=== PATIENT | female | born 1955 | race Caucasian/White ===

== ENCOUNTER 2017-02-17 08:23 | Outpatient (CLI) | payer OTHER ==
--- NOTE | 2017-02-17 22:33 | Ultrasound Report ---
EXAM: ABDOMEN ULTRASOUND EXAM DATE: 02/17/2017 08:30 a.m. CLINICAL HISTORY: Elevated LFTs, AT/AST, cholecystectomy. COMPARISON: None. TECHNIQUE: Real-time scanning was performed with static images obtained. FINDINGS: Liver: Diffusely hyperechoic liver parenchyma. No intrahepatic bile duct dilation. 1.8 x 1.8 x 1.2 cm rounded posterior left liver nonvascular hypoechoic lesion. 20.1 cm. Main portal vein flow: Hepatope radha. Gallbladder: Surgically absent. Biliary System: Common bile duct measures 7.5 mm. No intrahepatic or extrahepatic ductal dilatation. Pancreas: Not well seen due to overlying bowel gas and fatty liver parenchyma. Kidneys: Right: 10.7 cm longitudinally. Normal. No contour-deforming mass, stones, or hydronephrosis. Left: 10.1 cm longitudinally. Normal. No contour-deforming mass, stones, or hydronephrosis. Spleen: 13.6 x 3.7 x 3.5 cm. Normal in size and echotexture. Aorta and Inferior Vena Cava: Unremarkable. IMPRESSION: 1. Enlarged, markedly fatty liver. 1.8 cm avascular echogenic rounded lesion in the left liver. Findi ngs may represent a hemangioma. Confirmation with contrast-enhanced CT or MRI can be performed as nec essary. 2. Gallbladder is surgically absent. Normal common bile duct. 3. Pancreas poorly seen due to bowel gas. [facility] Referring Provider Line: [phone] SITE ID: [id number]
== END 2017-02-17 08:24 | disposition home or self-care (01) ==
LOC: DI 08:23
PROVIDERS: ATTEND Internal Medicine
DX: K76.0 Fatty (change of) liver, not elsewhere classified (principal); K76.9 Liver disease, unspecified; Z90.49 Acquired absence of other specified parts of digestive tract
CPT/HCPCS: 76700

== ENCOUNTER 2017-05-11 14:17 | Emergency (ER) | payer OTHER ==
[2017-05-11 15:09] LABS: BASOPHILS # (AUTO) 0.1 10^3/uL (0.0-0.1); BASOPHILS % (AUTO) 0.7 %; EOSINOPHILS # (AUTO) 0.3 10^3/uL (0.0-0.7); EOSINOPHILS % (AUTO) 2.5 %; HCT - HEMATOCRIT 38.5 % (37.0-47.0); HGB - HEMOGLOBIN 13.2 g/dL (12.0-16.0); LYMPHOCYTES # (AUTO) 3.3 10^3/uL (1.5-3.5); MEAN CORPUSCULAR HEMOGLOBIN 30.2 pg (27.0-31.0); MEAN CORPUSCULAR HGB CONC 34.3 g/dL (32.0-36.0); MEAN PLATELET VOLUME 7.6 fL (7.9-10.8); MONOCYTES # (AUTO) 0.5 10^3/uL (0.0-1.0); MONOCYTES % (AUTO) 4.9 %; NEUTROPHILS # (AUTO) 6.1 10^3/uL (1.5-6.6); NEUTROPHILS % (AUTO) 59.9 %; RED BLOOD COUNT 4.38 10^6/uL (4.20-5.40); RED CELL DISTRIBUTION WIDTH 13.1 % (12.0-15.0); UNCORRECTED WHITE BLOOD COUNT 10.2 x10^3/uL; WHITE BLOOD COUNT 10.2 x10^3/uL (4.8-10.8)
[2017-05-11 15:23] LABS: ALBUMIN/GLOBULIN RATIO 1.5 (1.0-2.2); BILIRUBIN,TOTAL 0.5 mg/dL (0.2-1.0); CALCIUM 9.2 mg/dL (8.5-10.3); CREATININE 0.6 mg/dL (0.4-1.0); POTASSIUM 3.9 mmol/L (3.5-5.0); TOTAL PROTEIN 7.2 g/dL (6.7-8.2)
--- NOTE | 2017-05-11 15:37 | XRAY Preliminary Report ---
Exam: XR CHEST 1 VIEW IMPRESSION: No acute cardiopulmonary disease seen. [facility] SITE ID: [id number]
--- NOTE | 2017-05-11 15:40 | XRAY Report ---
EXAM: CHEST RADIOGRAPHY EXAM DATE: 05/11/2017 03:09 PM. CLINICAL HISTORY: Chest pain. COMPARISON: Chest 03/26/2012. TECHNIQUE: 1 view. FINDINGS: Lungs/Pleura: No consolidation or focal airspace disease. No pleural effusion or pneumothorax. There is limited penetration which limits visualization. Mediastinum: Within exam limitations, the cardiomediastinal contour is normal. IMPRESSION: No acute cardiopulmonary disease seen. [facility] Referring Provider Line: [phone] SITE ID: [id number]
[2017-05-11] MEDS ORDERED: LIDOCAINE VISCOUS 2% 15 ML UDC MM STA (16:13)
[2017-05-11] MEDS ORDERED: MAG HYDROX/AL HYDROX/SIMETH 30 ML UDC PO STA (16:13)
[2017-05-11 16:20] VITALS: BP 168/88
[2017-05-11] MEDS ORDERED: SUCRALFATE 1 GM/10 ML UDC PO STA (16:27)
--- NOTE | 2017-05-11 16:29 | ED Physician Documentation ---
PD HPI CHEST PAIN - Stated complaint Stated Complaint: CHEST PX - Chief complaint Chief Complaint: Cardiac - History obtained from History obtained from: Patient, Family - History of Present Illness Timing - onset: Enter time (1229), Today Timing - onset during: Light activity Timing - duration: Hours Timing - details: Abrupt onset, Still present Pain level max: 8 Pain level now: 3 Quality: Sharp, Pain Location: Substernal Radiation: Back Improved by: Nothing Worsened by: No: Exertion, Inspiration Associated symptoms: No: Shortness of air, Diaphoresis, Nausea, Vomiting Similar symptoms before: Diagnosis (reflux) Recently seen: Not recently seen - Additional information Additional information: 61-year-old female with a history of reflux and status post removal of lap band has developed acute epigastric pain radiation to her back. She has become concerned about her heart with this as she has never had this radiation of pain to her back. She has had her gallbladder out she has had her appendix out she has had her lap band placed and removed and she has some hernia surgeries in her abdomen as well. She has not had coronary disease. She does have some diabetes. She did some drinking last night at a wine tasting event. She usually drinks 2-3 times per week lightly. She also takes omeprazole daily and does state that she did take her omeprazole yesterday. Review of Systems Constitutional: denies: Fever, Chills Eyes: denies: Decreased vision Ears: denies: Ear pain Nose: reports: Rhinorrhea / runny nose, Congestion (resovled) Throat: reports: Sore throat (resolved last week) Cardiac: reports: Chest pain / pressure. denies: Palpitations Respiratory: reports: Wheezing. denies: Dyspnea, Cough GI: reports: Abdominal Pain. denies: Nausea, Vomiting : denies: Dysuria, Frequency Skin: denies: Rash Musculoskeletal: reports: Back pain. denies: Neck pain, Extremity pain PD PAST MEDICAL HISTORY - Past Medical History Past Medical History: Yes Respiratory: Asthma Endocrine/Autoimmune: Other GI: Other : Other Psych: Depression - Past Surgical History Past Surgical History: Yes General: Cholecystectomy, Appendectomy, Other - Present Medications Home Medications: Ambulatory Orders Medication Instructions Recorded Confirmed Albuterol Sulfate [Proair Hfa 05/11/17 Inhaler] Aspirin [Aspirin EC] 05/11/17 Cyanocobalamin (Vitamin B-12) 05/11/17 [Vitamin B-12] Fluoxetine HCl 05/11/17 Metformin HCl [Metformin HCl ER] BID 05/11/17 Montelukast Sodium DAILY 05/11/17 [place]-3 Fatty Acids/Fish Oil [[facility] DAILY 05/11/17 Fish Oil 1,200 mg Softgel] Omeprazole DAILY 05/11/17 Sucralfate [Carafate] 1 gm PO ACHS #300 ml 05/11/17 - Allergies Allergies/Adverse Reactions: Allergies Allergy/AdvReac Type Severity Reaction Status Date / Time naproxen Allergy Hives Verified 05/11/17 14:23 [From Flanax (naproxen)] neomycin Allergy Rash Verified 05/11/17 14:24 - Social History Does the pt smoke?: No Smoking Status: Never smoker Does the pt drink ETOH?: Yes ETOH Use: Wine Does the pt have substance abuse?: No - Immunizations Immunizations are current?: No - POLST Patient has POLST: No PD ED PE NORMAL - Vitals Vital signs reviewed: Yes (hypertensive mild ) - General General: Alert and oriented X 3, No acute distress, Well developed/nourished - HEENT HEENT: Atraumatic, PERRL, EOMI, Ears normal, Moist mucous membranes, Pharynx benign, Dentition benign - Neck Neck: Supple, no meningeal sign, No bony TTP - Cardiac Cardiac: RRR, No murmur - Respiratory Respiratory: No respiratory distress, Clear bilaterally - Abdomen Abdomen: Soft, Other (mild epigastric tenderness to palpation ) - Back Back: No CVA TTP, No spinal TTP - Derm Derm: Normal color, Warm and dry, No rash - Extremities Extremities: No deformity, No edema - Neuro Neuro: No motor deficit, No sensory deficit Eye Opening: Spontaneous Motor: Obeys Commands Verbal: Oriented GCS Score: 15 - Psych Psych: Normal mood, Normal affect Results - Vitals Vitals: Vital Signs - 24 hr 05/11/17 05/11/17 05/11/17 14:24 15:45 16:19 Temperature 36.6 C 36.7 C Heart Rate 60 51 L 67 Respiratory 18 18 17 Rate Blood Pressure 153/83 H 152/93 H 168/88 H O2 Saturation 98 95 100 Oxygen O2 Source Room air - EKG (time done) 1430 Rate: Rate (enter#) (64) Intervals: Prolonged QT Ischemia: Other (flat T's) Compare to prior EKG: Old EKG unavailable Computer interpretation: Agree with computer - Labs Labs: Laboratory Tests 05/11/17 05/11/17 05/11/17 15:00 15:00 15:00 WBC 10.2 RBC 4.38 Hgb 13.2 Hct 38.5 MCV 88.0 MCH 30.2 MCHC 34.3 RDW 13.1 Plt Count 232 MPV 7.6 L Neut # 6.1 Lymph # 3.3 [place] # 0.5 Eos # 0.3 Baso # 0.1 Absolute Nucleated RBC 0.00 Nucleated RBC % 0.0 Sodium 139 Potassium 3.9 Chloride 103 Carbon Dioxide 24 Anion Gap 12.0 BUN 12 Creatinine 0.6 Estimated GFR (MDRD) 102 Glucose 91 Calcium 9.2 Total Bilirubin 0.5 AST 35 ALT 36 Alkaline Phosphatase 92 Troponin I < 0.04 Total Protein 7.2 Albumin 4.3 Globulin 2.9 Albumin/Globulin Ratio 1.5 Lipase 29 - Rads (name of study) 1 veiw chest Radiology: Prelim report reviewed (Impression: No acute cardiopulmonary disease seen.), EMP read indepedently, See rad report PD MEDICAL DECISION MAKING - ED course Complexity details: reviewed results, re-evaluated patient, considered differential, d/w patient, d/w family ED course: 61-year-old female with acute epigastric burning with radiation into her back is given a GI cocktail consisting of 10 ml of viscous lidocaine and 30 mL of Mylanta with some improvement in her pain. She subsequently administered Carafate. I suspect her pain is related to gastritis and the remainder of her workup is unremarkable. Departure - Departure Disposition: 01 Home, Self Care Clinical Impression: Gastritis Qualifiers: Gastritis type: unspecified gastritis Chronicity: acute Gastritis bleeding: without bleeding Qualified Code(s): K29.00 - Acute gastritis without bleeding Condition: Stable Instructions: ED PUD Vs Gastritis Follow-Up: KYLE MENDOZA MD [Primary Care Provider] - Prescriptions: Sucralfate [Carafate] 1 gm PO ACHS #300 ml
== END 2017-05-11 16:48 | disposition home or self-care (01) ==
LOC: ED 14:17
DX: K29.00 Acute gastritis without bleeding (principal); I45.81 Long QT syndrome; Z79.82 Long term (current) use of aspirin
CPT/HCPCS: 36415; 71010; 80053; 83690; 84484; 85025; 93005; 99283; 99284; A9270

== ENCOUNTER 2017-06-05 18:13 | Emergency (ER) | payer OTHER ==
[2017-06-05] MEDS ORDERED: SODIUM CHLORIDE 0.9% 1,000 ML IV ONE (19:09)
[2017-06-05 19:31] LABS: BASOPHILS % (AUTO) 0.3 %; EOSINOPHILS % (AUTO) 0.2 %; HGB - HEMOGLOBIN 14.5 g/dL (12.0-16.0); LYMPHOCYTES # (AUTO) 0.5 10^3/uL (1.5-3.5); LYMPHOCYTES % (AUTO) 4.5 %; MEAN CORPUSCULAR HEMOGLOBIN 29.5 pg (27.0-31.0); MEAN CORPUSCULAR HGB CONC 33.4 g/dL (32.0-36.0); MEAN CORPUSCULAR VOLUME 88.2 fL (81.0-99.0); MEAN PLATELET VOLUME 7.8 fL (7.9-10.8); MONOCYTES # (AUTO) 0.2 10^3/uL (0.0-1.0); NEUTROPHILS # (AUTO) 9.5 10^3/uL (1.5-6.6); PLT - PLATELET COUNT 253 10^3/uL (130-450); RED BLOOD COUNT 4.93 10^6/uL (4.20-5.40); RED CELL DISTRIBUTION WIDTH 12.9 % (12.0-15.0); WHITE BLOOD COUNT 10.2 x10^3/uL (4.8-10.8)
[2017-06-05 19:40] LABS: ALBUMIN 4.6 g/dL (3.2-5.5); ALBUMIN/GLOBULIN RATIO 1.5 (1.0-2.2); BILIRUBIN,TOTAL 0.6 mg/dL (0.2-1.0); CALCIUM 9.2 mg/dL (8.5-10.3); CREATININE 0.7 mg/dL (0.4-1.0); TOTAL PROTEIN 7.6 g/dL (6.7-8.2)
[2017-06-05] MEDS ORDERED: ONDANSETRON 4 MG/2 ML VIAL IVP STA (19:45)
[2017-06-05] MEDS ORDERED: MORPHINE 10 MG/ML VIAL IVP STA (19:45)
[2017-06-05] MEDS ORDERED: HYDROcod/ACETAM 5/325 MG TABLET PO STA (21:02)
[2017-06-05 21:04] VITALS: BP 103/64
--- NOTE | 2017-06-05 21:35 | ED Physician Documentation ---
PD HPI NVD - Stated complaint Stated Complaint: N/V/F/D/ABD PX - Chief complaint Chief Complaint: Abd Pain - History obtained from History obtained from: Patient, Family - History of Present Illness Timing - onset: Today Timing - duration: Days (1) Timing - details: Gradual onset Pain level max: 8 Pain level now: 7 Associated symptoms: Fever, Abdominal pain, Other (diarrhea, vomiting) Contributing factors: Sick contact. No: Travel, Recent antibiotics, Anticoagulated Improved by: Vomiting Worsened by: Eating Recently seen: Not recently seen - Additonal information Additional information: Patient with acute onset of abdominal pain, vomiting and diarrhea today. Also fevers at home. She has body aches. Unable to tolerate p.o. Has a history of multiple gastrointestinal surgeries including a LAP-BAND placement and removal of the lap band. Review of Systems Constitutional: reports: Fever Nose: denies: Rhinorrhea / runny nose, Congestion GI: reports: Abdominal Pain, Vomiting, Diarrhea Skin: denies: Rash Musculoskeletal: denies: Neck pain, Back pain Neurologic: denies: Headache PD PAST MEDICAL HISTORY - Past Medical History Respiratory: Asthma Endocrine/Autoimmune: Other GI: Other : Other Psych: Depression - Past Surgical History Past Surgical History: Yes General: Cholecystectomy, Appendectomy, Other - Present Medications Home Medications: Ambulatory Orders Medication Instructions Recorded Confirmed Albuterol Sulfate [Proair Hfa 05/11/17 Inhaler] Aspirin [Aspirin EC] 05/11/17 Cyanocobalamin (Vitamin B-12) 05/11/17 [Vitamin B-12] Fluoxetine HCl 05/11/17 Metformin HCl [Metformin HCl ER] BID 05/11/17 Montelukast Sodium DAILY 05/11/17 [place]-3 Fatty Acids/Fish Oil [[facility] DAILY 05/11/17 Fish Oil 1,200 mg Softgel] Omeprazole DAILY 05/11/17 Sucralfate [Carafate] 1 gm PO ACHS #300 ml 05/11/17 Hydrocodone/Acetaminophen 1 - 2 each PO Q6H PRN #14 tablet 06/05/17 [Hydrocodon-Acetaminophen 5-325] Ondansetron Odt [Zofran] 4 mg TL Q6H PRN #10 tablet 06/05/17 - Allergies Allergies/Adverse Reactions: Allergies Allergy/AdvReac Type Severity Reaction Status Date / Time naproxen Allergy Hives Verified 05/11/17 14:23 [From Flanax (naproxen)] neomycin Allergy Rash Verified 05/11/17 14:24 - Social History Does the pt smoke?: No Smoking Status: Never smoker Does the pt drink ETOH?: Yes Does the pt have substance abuse?: No - Immunizations Immunizations are current?: No - POLST Patient has POLST: No PD ED PE NORMAL - Vitals Vital signs reviewed: Yes - General General: Alert and oriented X 3, No acute distress, Well developed/nourished - HEENT HEENT: PERRL, Moist mucous membranes - Neck Neck: Supple, no meningeal sign - Cardiac Cardiac: RRR, Strong equal pulses - Respiratory Respiratory: No respiratory distress, Clear bilaterally - Abdomen Abdomen: Soft, Non tender, Non distended - Derm Derm: Warm and dry, No rash - Extremities Extremities: No edema - Neuro Neuro: Alert and oriented X 3 - Psych Psych: Normal mood, Normal affect Results - Vitals Vitals: Vital Signs - 24 hr 06/05/17 06/05/17 18:15 21:03 Temperature 37.3 C Heart Rate 100 76 Respiratory 18 16 Rate Blood Pressure 150/82 H 103/64 O2 Saturation 95 95 Oxygen O2 Source Room air - Labs Labs: Laboratory Tests 06/05/17 06/05/17 19:21 19:21 WBC 10.2 RBC 4.93 Hgb 14.5 Hct 43.5 MCV 88.2 MCH 29.5 MCHC 33.4 RDW 12.9 Plt Count 253 MPV 7.8 L Neut # 9.5 H Lymph # 0.5 L [place] # 0.2 Eos # 0.0 Baso # 0.0 Absolute Nucleated RBC 0.00 Nucleated RBC % 0.0 Sodium 137 Potassium 3.5 Chloride 102 Carbon Dioxide 18 L Anion Gap 17.0 H BUN 10 Creatinine 0.7 Estimated GFR (MDRD) 86 L Glucose 150 H Calcium 9.2 Total Bilirubin 0.6 AST 44 H ALT 36 Alkaline Phosphatase 99 Total Protein 7.6 Albumin 4.6 Globulin 3.0 Albumin/Globulin Ratio 1.5 Lipase 23 PD MEDICAL DECISION MAKING - ED course Complexity details: reviewed results, re-evaluated patient, considered differential, d/w patient, d/w family ED course: Patient is a 61-year-old female who presents to the emergency department with what appears to be viral gastroenteritis. No evidence of bowel obstruction. Abdomen is soft, nontender nondistended on serial exam. Feels better after IV fluids. Tolerating p.o. without difficulty. We will continue supportive care. Patient and family counseled regarding signs and symptoms for which I believe and urgent re-evaluation would be necessary. Patient with good understanding of and agreement to plan and is comfortable going home at this time This document was made in part using voice recognition software. While efforts are made to proofread this document, sound alike and grammatical errors may occur. Departure - Departure Disposition: 01 Home, Self Care Clinical Impression: Gastroenteritis Condition: Good Instructions: ED Gastroenteritis Viral Follow-Up: KYLE MENDOZA MD [Primary Care Provider] - Within 3 Days Prescriptions: Hydrocodone/Acetaminophen [Hydrocodon-Acetaminophen 5-325] 1 - 2 each PO Q6H PRN #14 tablet PRN Reason: pain Ondansetron Odt [Zofran] 4 mg TL Q6H PRN #10 tablet PRN Reason: Nausea / Vomiting Comments: Drink plenty of fluids and rest. This should improve over the next 24 hours. Discharge Date/Time: 06/05/17 21:50
== END 2017-06-05 21:50 | disposition home or self-care (01) ==
LOC: ED 18:13
DX: K52.9 Noninfective gastroenteritis and colitis, unspecified (principal); Z98.890 Other specified postprocedural states
CPT/HCPCS: 36415; 80053; 83690; 85025; 96361; 96374; 96375; 99283; 99284; A9270

== ENCOUNTER 2017-10-29 10:02 | Outpatient (CLI) | payer OTHER ==
[2017-10-29] MEDS ORDERED: BARIUM SULFATE 135 ML BOTTLE PO ONE (11:12)
[2017-10-29] MEDS ORDERED: SIMETHICONE/SOD BICARB/CIT AC 1 EACH PACKET PO ONE (11:12)
[2017-10-29] MEDS ORDERED: BARIUM SULFATE 176 GM BOTTLE PO ONE (11:12)
--- NOTE | 2017-10-29 20:05 | XRAY Report ---
ESOPHAGRAM: 10/29/2017 HISTORY: Gastroesophageal reflux, possible Christopher's esophagus. FINDINGS: Three minutes 37 seconds of fluoroscopy time, 12 fluoroscopic images are obtained. The patient is given thin and thick barium and air powder to swallow by mouth. The esophageal motility is normal. There is no evidence of aspiration, stricture, hiatal hernia, or reflux during this examination. The mucosa is unremarkable. Esophagus is of normal distensibility. A 13 mm barium tablet passes easily through the esophagus into the stomach. IMPRESSION: NORMAL ESOPHAGRAM. TD: 10/29/2017 16:44
== END 2017-10-29 10:03 | disposition home or self-care (01) ==
LOC: DI 10:02
PROVIDERS: ATTEND Nurse Practitioner Acute Care
DX: K21.9 Gastro-esophageal reflux disease without esophagitis (principal); R13.14 Dysphagia, pharyngoesophageal phase
CPT/HCPCS: 74220; A9270

== ENCOUNTER 2018-09-25 09:40 | Outpatient (CLI) | payer OTHER ==
--- NOTE | 2018-09-25 13:22 | XRAY Report ---
Reason: HEADACHE Procedure Date: 09/25/2018 Accession Number: [id number] / [id number] Procedure: XR - Cervical Spine 2 View CPT Code: FULL RESULT: EXAM: CERVICAL SPINE RADIOGRAPHY EXAM DATE: 09/25/2018 10:03 AM. CLINICAL HISTORY: Headache. COMPARISONS: None. TECHNIQUE: 3 views. FINDINGS: Alignment: Normal. No spondylolisthesis or scoliosis. Bones: The cervical vertebral bodies and posterior elements are well visualized from the skull base through C7-T1. No fractures or bone lesions. Disks: Mild disk space narrowing predominantly at C5-C6 and C6-C7. Facets: Mild facet arthropathy in the lower cervical spine accompanied by mild lateral mass hypertrophy. Soft Tissues: Normal. No prevertebral soft tissue swelling. The visualized lung apices are clear. IMPRESSION: Mild degenerative changes. [facility] ADDENDUM: 09/30/18 13:59 Visualization of the lateral masses on the odontoid is somewhat limited. Given that clinical concern is specifically for this area, additional clarification of the atlantooccipital relationship with cross-sectional imaging, i.e. CT should be considered.
== END 2018-09-25 09:41 | disposition home or self-care (01) ==
LOC: DI 09:40
PROVIDERS: ATTEND Internal Medicine
DX: M50.322 Other cervical disc degeneration at C5-C6 level (principal); M47.9 Spondylosis, unspecified
CPT/HCPCS: 72040

== ENCOUNTER 2020-06-25 12:22 | Outpatient (CLI) | payer OTHER ==
--- NOTE | 2020-06-25 13:28 | SLEEP CARE CONSULTATION ---
Information from patient questionnaire entered by Diane Irwin. I have reviewed and concur with the information entered by Diane Irwin. This document represents the service I personally performed and the decisions made by me, Federica Hernandez ARNP. History of Present Illness Service Date and Time: 06/25/2020 1222 Reason for Visit: New patient Chief Complaint: reports: Unrefreshed sleep, Snoring, Excessive daytime sleepiness, Fatigue, Frequent awakenings at night, Other (dry tongue and mouth in AM). denies: Observed pauses in breathing Date of Onset: October 2019 Usual bedtime: 9:30 pm Time it takes to fall asleep: 2 hours Snores at night: Yes Observed to quit breathing while asleep: No Sleeps alone due to snoring: No Number of times waking at night: 3 Reasons for waking at night: reports: Bathroom, Other (dry throat, need water). denies: Choking, Snoring (dry throat, need water; cough upon awakening), Gasping for air Toss, Turn, or Twitch while sleeping: No Recalls having dreams: Yes Usually gets out of bed at: 6:30 am Feels refreshed in the morning: No Morning headache: No ("morning fog") Sleepy or fatigued during the day: Yes Ever fallen asleep while driving: No Takes day naps: Yes (1-2 days a week, only for a few minutes) Dreams during day naps: No Prior sleep studies: No Additional HPI information: I had the pleasure of seeing SANTIAGO VALLECILLO today regarding the possibility of her having a sleep disorder. Her current complaints are snoring, dry cough and tongue in AM and fatigue. She is waking up either in the night or in morning with her tongue so dry. She may sleep with mouth open. She is sleeping upright because of congestion in her nose and sinuses. Her throat can feel sore and voice raspy. She does not feel she gets a good night sleep. - Parasomnia Symptoms Ever been unable to move upon waking from sleep: No Walks in sleep: No Talks in sleep: No Ever acted out dreams in sleep: No Ever felt weak in the knees when startled or emotional: No Bothered by creepy, crawly, restless sensations in legs: No Problems with memory or concentration: Yes (more memory issues) Subjective Initial Apollo Sleepiness Scale score: 9 (in 2020) Past Medical History Past Medical History: reports: Diabetes, Asthma, Depression, GERD. denies: Hypertension, Arrythmia, Anxiety, Mood disorder Social History The patient's occupation is a RETIRED. Patient is and lives in [place]. Have you smoked in the past 12 months: No Alcohol use: Yes Alcohol amount and frequency: 2 drinks per week Caffeine use: Yes Caffeine amount and frequency: 1 cup a day Family History Family history of sleep disordered breathing: Yes (brother) Family Hx Sleep Apnea: Father: Snoring, Sibling: Sleep apnea - Treated Allergies and Home Medications Drug allergies reviewed: Yes (naproxen, neomycin, aleve) Home medication list reviewed: Yes Allergy and home medication list: Modexus - longevity supplement Review of Systems Cardiovascular: denies: high blood pressure Respiratory: reports: wheeze Gastrointestinal: reports: heartburn, nausea, vomitting, diarrhea Urinary: reports: urgency Neurological: reports: gait or balance problems Psychiatric: reports: depression, claustrophobia Ear/Nose/Throat: reports: nasal congestion, sinus problems, dry mouth/throat, hoarseness, wisdom teeth removed. denies: tonsillectomy Endocrine: reports: sluggishness Musculoskeletal: reports: joint pain Immunologic: reports: sneezing, allergies to food or environment (seasonal allergies) Physical Exam Blood Pressure: 142/78 Cuff size: wrist Heart Rate: 59 O2 Saturation: 98 Height: 5 ft 3 in Weight: 221 lb Body Mass Index: 39.1 BMI Classification: Obese Neck circumference: 16 (inches) Nostrils: patent to airflow Turbinates: swollen Uvula visualization: 100% Mallampati Class I Tongue: enlarged in size with teeth curry on lateral edges Tonsils: 2+ Neck: normal w/o lymphadenopathy or thyromegaly Heart: regular rate and rhythm Lungs: clear bilaterally Impression and Plan 1. Suspected Obstructive Sleep Apnea-Hypopnea Syndrome, as suggested by a history of loud and irregular snoring, frequent awakening during the night, unrefreshed sleep, cognitive impairment, and excessive daytime sleepiness. Narrow oropharynx and obesity are common predisposing factors for obstructive sleep apnea-hypopnea syndrome. I recommend proceeding to polysomnography to confirm the diagnosis and to assess severity. If the patient has significant sleep disordered breathing, a manual CPAP titration study will also be performed to find the optimal treatment pressure. I informed the patient of what the sleep studies involve and after some discussion, obtained agreement to proceed. The p athophysiology of obstructive sleep apnea-hypopnea syndrome was discussed with the patient and health risks of cardiovascular and cerebrovascular disease if not treated. AASM brochure for obstructive sleep apnea-hypopnea syndrome given and reviewed. Risks of drowsy driving discussed in detail and patient advised to avoid long distance driving and to last puller at the first sign of drowsiness. Patient agreed to plan. * Schedule polysomnography +- manual CPAP titration study and return in 1-2 weeks after the study to discuss result and initiate therapy. * Avoid long distance driving or driving when feeling sleepy. * Avoid alcohol, sedative and muscle relaxant around bedtime. * Attempt to lose weight. * Review instructions provided by trained office staff on how to prepare for the sleep study. * Return for follow-up after sleep study completed. Counseling Topics: Weight loss health impact Visit Type: In Office Time Spent with Patient (minutes): 31 Provider Statement: I spent 100% of the Face to Face Visit with the patient with greater than 50% spent counseling the patient and coordination of care.
[2020-06-25 13:29] VITALS: BP 142/78
== END 2020-06-25 12:23 | disposition home or self-care (01) ==
LOC: SC 12:22
PROVIDERS: ATTEND Nurse Practitioner Family
DX: G47.10 Hypersomnia, unspecified (principal); G47.8 Other sleep disorders; R53.83 Other fatigue; E66.9 Obesity, unspecified; Z68.39 Body mass index [BMI] 39.0-39.9, adult; R41.89 Other symptoms and signs involving cognitive functions and awareness; R06.83 Snoring
CPT/HCPCS: 99203; 99212

== ENCOUNTER 2020-07-13 10:10 | Outpatient (CLI) | payer OTHER | END 2020-07-13 10:11 | disposition home or self-care (01) | LOC: SC 10:10 | PROVIDERS: ATTEND Nurse Practitioner Family | DX: G47.33 Obstructive sleep apnea (adult) (pediatric) (principal); R09.02 Hypoxemia; E66.9 Obesity, unspecified; Z68.39 Body mass index [BMI] 39.0-39.9, adult | CPT/HCPCS: 95806 ==

== ENCOUNTER 2020-07-16 09:38 | Outpatient (CLI) | payer OTHER ==
--- NOTE | 2020-07-16 13:19 | Ultrasound Report ---
LIMITED ULTRASOUND OF LEFT BREAST AND AXILLA: 07/16/2020 CLINICAL: Palpable left breast lump. Comparison is made to exams dated: 07/16/2020 mammogram, 05/03/2017 mammogram, 09/12/2013 mammogram, mammogram, and 01/07/2010 mammogram - [facility]. Ultrasound of the left breast 9 o'clock, and axilla regions was performed. There is a benign 0.4 cm x 0.6 cm x 2.2 cm oval cyst in the left breast at 6 o'clock posterior depth 6 cm from the nipple. This oval cyst is anechoic with posterior acoustic enhancement. IMPRESSION: BENIGN There is no sonographic evidence of malignancy. The 0.4 cm x 0.6 cm x 2.2 cm oval cyst in the left breast is consistent with a simple cyst and is chucho ign. Return to annual mammogram screening schedule is recommended. This exam was interpreted at Station ID: [id number]. Electronically Signed By: Srini Courtney acr/:07/16/2020 11:03:22 Ultrasound BI-RADS: 2 Benign BI-RADS CATEGORY: (2) - 2 RECOMMENDATION: (ANNUAL) - Recommend routine annual screening mammography. [id number] return to screening LATERALITY: (B)
--- NOTE | 2020-07-16 13:19 | Mammography Report ---
BILATERAL DIGITAL DIAGNOSTIC MAMMOGRAM 3D/2D: 07/16/2020 CLINICAL: Palpable left breast lump. Comparison is made to exams dated: 05/03/2017 mammogram, 09/12/2013 mammogram, 03/22/2012 mammogram, a nd 01/07/2010 mammogram - [facility]. The tissue of both breasts is predominantly f atty. There is a 0.9 cm x 0.3 cm x 0.3 cm oval asymmetry with a circumscribed margin in the left breast ant erior depth medial region seen on the craniocaudal view only 6 cm from the nipple. No other significant masses, calcifications, or other findings are seen in either breast. IMPRESSION: INCOMPLETE: NEEDS ADDITIONAL IMAGING EVALUATION The 0.9 cm x 0.3 cm x 0.3 cm oval asymmetry in the left breast is indeterminate. An ultrasound is re commended. US will be performed and dictated separately. This exam was interpreted at Station ID: [id number]. NOTE: For mammograms, a report in lay terms will be sent to the patient. Approximately 15% of breast malignancies will not be visualized mammographically. In the management of a palpable breast mass, a negative mammogram must not discourage biopsy of a clinically suspicious lesion. Electronically Signed By: Srini Courtney acr/:07/16/2020 11:01:54 ACR BI-RADS Category 0: Incomplete 3340F PARENCHYMAL PATTERN: (F) - The breast(s) demonstrate(s) diffuse fatty replacement. BI-RADS CATEGORY: (0) - 0 Ultrasound [id number] Immediate follow-up LATERALITY: (L)
== END 2020-07-16 09:39 | disposition home or self-care (01) ==
LOC: DI 09:38
PROVIDERS: ATTEND Physician Assistant
DX: N60.02 Solitary cyst of left breast (principal)

== ENCOUNTER 2020-07-23 12:32 | Outpatient (CLI) | payer OTHER ==
--- NOTE | 2020-07-23 13:19 | SLEEP CARE CONSULTATION ---
Information from patient questionnaire entered by Diane Irwin. I have reviewed and concur with the information entered by Diane Irwin. This document represents the service I personally performed and the decisions made by , Federica Hernandez ARNP. History of Present Illness Service Date and Time: 07/23/2020 1232 Initial [place] Sleepiness Scale score: 9 (in 2020) Current [place] Sleepiness Scale score: 9 Additional HPI information: SANTIAGO VALLECILLO returns with spouse listening from the phone for follow up and results of the recently performed home sleep study. I explained the pathophysiology behind obstructive sleep apnea. We then spent quite a bit of time discussing different treatment options. For mild obstructive sleep apnea, surgery and oral appliance are alternatives to nasal CPAP therapy but in moderate or severe cases, nasal CPAP is the most effective and reliable treatment. Because apnea is primarily in supine position, then positional management therapy could be effective. Methods discussed such as pos itioning with pillows, using a T-shirt with tennis balls in the back, and shown commercial products that have a pillow format on back to prevent supine sleep. I reviewed the impact of weight changes on sleep apnea and strongly recommended losing weight. After some discussion, the patient opted to go with the nasal CPAP therapy. Nasal autoCPAP set at [id number] will be ordered with rationale explained. A manual titration study will be ordered if unable to find optimal pressure with office adjustments. I explained how CPAP machine works with sample devices Respironics Dreamstation and ResSojeans [id number] and what to expect when using the machine. Using CPAP every night in order to get used to it was emphasized. Patient advised to put CPAP mask on before getting into bed so as not to fall asleep without CPAP. To assist acclimation to CPAP use, it could also be used for a short time during day while reading or watching TV. The patient was instructed to call the CPAP supplier to discuss any mechanical problem that may occur. If the mask given is uncomfortable or is difficult to keep on through the night even with adjustment, contact the CPAP supplier as many will replace with another mask style if notified before 30 days. If snoring or perceives is not getting enough air or too much air from the machine, notify this office. AAS patient education PAP tips reviewed and given to patient. Patient counseled not drink alcohol less than 4 hours before bedtime as it can increase snoring and apnea. Patient was cautioned about risks of drowsy driving until sleepiness symptoms resolve. Sleep Study - Results Type of Sleep Study: Home sleep study Prior sleep studies: No Polysomnography/Home Sleep Study results: Physician Impression: The quality of the study is good. The length of the study is adequate (> 240 minutes). Please also see the tabulated and graphic data. 1. Obstructive Sleep Apnea-Hypopnea (ICD-10 G47.33), moderate, with an AHI of 29.1/hr and lillian SaO2 of 75%. During the study, the patient had 112 apneas (112 obstructive, 0 central, 0 mixed) and 102 hypopneas. The longest episode lasted 59.5 seconds. The respiratory events occurred more frequently during supine sleep (supine AHI was 31.0 and non-supine, 8.29). 2. Hypoxemia (ICD-10 R09.02), moderate, with the lowest oxygen saturation of 75 % and 23.7 minutes with SaO2 under 90%. Baseline oxygen saturation was normal (Average oxygen saturation was 93%). Allergies and Home Medications Drug allergies reviewed: Yes (naproxen, neomycin) Home medication list reviewed: Yes (no changes) Review of Systems Review of systems same as previous: No (had mammogram that was clear; no other changes) Physical Exam Heart Rate: 70 O2 Saturation: 98 Height: 5 ft 3 in Weight: 224 lb Body Mass Index: 39.6 BMI Classification: Obese Impression and Plan 1. Obstructive Sleep Apnea-Hypopnea Syndrome, moderate, with lowest oxygen saturation of 75%. Obviously this is the cause of the patients symptoms of unrefreshed sleep, and excessive daytime sleepiness. Positive pressure therapy could benefit diabetes, depression, gastric reflux and asthma. As mentioned above, the patient will be started on nasal autoCPAP therapy with pressure set at 4-15 cmH2O. A manual titration study will be completed if unable to find optimal treatment pressure with office adjustments. Compliance guidelines also reviewed. A copy of compliance guidelines will be given for reference at check out. Because the apnea is more severe supine, I instructed to avoid sleeping supine using pillow positioning until able to start CPAP use. 2. Hypoxemia, moderate. Patient had a lillian oxygen saturation of 75 % and spent 23.7 minutes with SaO2 under 90%. Her baseline oxygen saturation was normal with an average oxygen saturation at 93%. * Nasal auto CPAP therapy, pressure at 4-15 cm H2O. * Continue to try to lose weight. * Avoid alcohol consumption near bedtime. * Avoid supine sleep until using CPAP. * The patient is again cautioned about driving until sleepiness completely resolves. * Return one month after CPAP obtained. I will assess response to therapy and compliance at that time. Counseling Topics: Weight loss health impact Visit Type: In Office Time Spent with Patient (minutes): 23 Provider Statement: I spent 100% of the Face to Face Visit with the patient with greater than 50% spent counseling the patient and coordination of care.
== END 2020-07-23 12:33 | disposition home or self-care (01) ==
LOC: SC 12:32
PROVIDERS: ATTEND Nurse Practitioner Family
DX: G47.33 Obstructive sleep apnea (adult) (pediatric) (principal); R09.02 Hypoxemia; E66.9 Obesity, unspecified; Z68.39 Body mass index [BMI] 39.0-39.9, adult
CPT/HCPCS: 99212; 99213

== ENCOUNTER 2020-12-21 14:45 | Outpatient (CLI) | payer OTHER ==
--- NOTE | 2020-12-21 15:42 | SLEEP CARE CONSULTATION ---
Information from patient questionnaire entered by Diane Irwin. I have reviewed and concur with the information entered by Diane Irwin. This document represents the service I personally performed and the decisions made by , Federica Hernandez ARNP. History of Present Illness Service Date and Time: 12/21/2020 1445 Previous diagnosis: Moderate, Obstructive Sleep Apnea-Hypopnea Syndrome AHI: 29.1 (in 2020) Reason for follow up: first compliance Equipment type: CPAP Equipment obtained from: [employer] (got initial supplies) Mask style: Nasal (over) Backup mask available: No (will keep old mask when replaced) Last cushion change: 1 month Prior sleep studies: Yes Year and Where: 2020 - [facility] Type of Sleep Study: Home sleep study HPI additional information: SANTIAGO VALLECILLO was diagnosed to have moderate, AHI 29.1, obstructive sleep apnea-hypopnea syndrome and returned today for CPAP therapy first compliance follow-up. CPAP Compliance Data - Data Reviewed with Patient Average duration of nightly device use: 5 hr 23 min Compliance rate %: 79 (90 days)(met 73% - 07/27/20-08/25/20) Current pressure setting (cmH2O): 4-15 (median 10.2, 95th 12.2, max 13.2) Humidity settin Average residual AHI: 1.5 Central apnea: 0.0 Obstructive apnea: 0.8 Subjective Missed days of use due to: reports: mask issues Patient concerns: reports: aerophagia (3 times a week), mask discomfort, air blowing in eyes, condensation in mask/hose (happening more at beginning, less often now). denies: mask leak noise, nasal congestion, dry mouth, nose, throat, epistaxis, other Observed to snore while using device: No Current pressure setting perceived as: comfortable On therapy, patient: reports: sleeping better, awakening more refreshed, being more awake and alert during the day, more rested overall. denies: drowsiness while driving Initial [place] Sleepiness Scale score: 9 (in 2020) Current [place] Sleepiness Scale score: 6 Allergies and Home Medications Home medication list reviewed: Yes (Fluoxetine restarted 20 mg daily) Review of Systems Review of systems same as previous: Yes (no changes) Physical Exam Heart Rate: 58 O2 Saturation: 98 Height: 5 ft 3 in Weight: 223 lb Body Mass Index: 39.4 BMI Classification: Obese Impression and Plan 1. Obstructive Sleep Apnea-Hypopnea Syndrome, moderate, with good treatment comp liance and good apnea control. On CPAP therapy, the patient has better sleep quality and is more rested overall. She has been getting some bloating 3-4 days a week with burping in the morning. To reduce symptoms of aerophagia, the CPAP pressure will be reduced to 10-12 cmH2O. Patient advised to contact me if this does not reduce symptoms or if pressure change uncomfortable. Patient is still getting used to the mask and tells me the over the nose mask is the most comfortable. She has some claustrophobia and sometimes gets triggered at the beginning of the night but feels this will improve over time as she gets used to it. Patient's apnea severity and rationale for treatment to reduce apnea, improve sleep quality and reduce cardiovascular and cerebrovascular events was reviewed. I also reviewed the benefit of consistent device use of CPAP for diabetes, gastric reflux, depression, and asthma. I again encouraged patient to try to lose weight to benefit her overall health. * Change auto CPAP pressure to 10-12 cmH2O * Notify me if snoring with mask or feeling that the pressure is too much or too little * Attempt to lose weight * Call this office if any problems using CPAP * Return for follow up in 1-2 months, or sooner if concerns arise Counseling Topics: Spare mask, Weight loss health impact Visit Type: In Office Time Spent with Patient (minutes): 22 Provider Statement: I spent 100% of the Face to Face Visit with the patient with greater than 50% spent counseling the patient and coordination of care.
== END 2020-12-21 14:46 | disposition home or self-care (01) ==
LOC: SC 14:45
PROVIDERS: ATTEND Nurse Practitioner Family
DX: G47.33 Obstructive sleep apnea (adult) (pediatric) (principal); E66.9 Obesity, unspecified; Z68.39 Body mass index [BMI] 39.0-39.9, adult
CPT/HCPCS: 99212; 99213

== ENCOUNTER 2021-02-09 12:32 | Outpatient (CLI) | payer OTHER ==
--- NOTE | 2021-02-09 13:22 | SLEEP CARE CONSULTATION ---
Information from patient questionnaire entered by Diane Irwin. I have reviewed and concur with the information entered by Diane Irwin. This document represents the service I personally performed and the decisions made by , Federica Hernandez ARNP. History of Present Illness Service Date and Time: 02/09/2021 1232 Previous diagnosis: Moderate, Obstructive Sleep Apnea-Hypopnea Syndrome AHI: 29.1 Reason for follow up: other (6 week pressure change) Equipment type: CPAP Equipment obtained from: [employer] (has not gotten any supplies yet, is on automatic but has not reciprocated) Mask style: Nasal Mask brand: Resmed ([id number]) Backup mask available: Yes (other size mask) Last cushion change: 5+ months Prior sleep studies: Yes Year and Where: 2020 - [facility] Type of Sleep Study: Home sleep study HPI additional information: SANTIAGO VALLECILLO was diagnosed to have moderate, AHI 29.1, obstructive sleep apnea-hypopnea syndrome and returned today for CPAP therapy 6 week pressure change follow-up. Sleep Study - Results Type of Sleep Study: Home sleep study Prior sleep studies: Yes Year and Where: 2020 - [facility] CPAP Compliance Data - Data Reviewed with Patient Average duration of nightly device use: 6 hr 14 min Compliance rate %: 74 (42 days) Current pressure setting (cmH2O): 8.2-10.6 Humidity settin Average residual AHI: 0.9 Subjective Missed days of use due to: reports: travel Patient concerns: reports: aerophagia (better after pressure reduction), mask discomfort, air blowing in eyes, condensation in mask/hose (may be due to overfilling reservoir). denies: mask leak noise, nasal congestion, dry mouth, nose, throat, epistaxis, other Observed to snore while using device: No Current pressure setting perceived as: comfortable On therapy, patient: reports: sleeping better, awakening more refreshed, being more awake and alert during the day, more rested overall. denies: drowsiness while driving Initial [place] Sleepiness Scale score: 9 (in 2020) Current [place] Sleepiness Scale score: 9 Allergies and Home Medications Home medication list reviewed: Yes (no changes) Review of Systems Review of systems same as previous: Yes (no changes; looking into breast reduction) Physical Exam Heart Rate: 58 O2 Saturation: 98 Height: 5 ft 3 in Weight: 224 lb Body Mass Index: 39.6 BMI Classification: Obese Impression and Plan 1. Obstructive Sleep Apnea-Hypopnea Syndrome, moderate, with good treatment comp liance and excellent apnea control. On CPAP therapy, the patient has better sleep quality and is more rested overall. Patient felt the last pressure change was too high. She went in and adjusted it herself a couple of nights ago and states it feels better at the 8.2-10.6 cm H2O. I will adjust her pressure to 8- 10 cm H2O and fax this pressure change to her [facility] company. She has been having a lot less bloating feeling the last couple of nights with these lower pressures. She does need some new supplies since she has not been able to change her mask in the last 5 to 6 months. I encouraged her to contact her DME company to check on her supplies. She signed up for an automatic supply send out but has not yet seen any. Patient's apnea severity and rationale for treatment to reduce apnea, improve sleep quality and reduce cardiovascular and cerebrovascular events was reviewed. I also reviewed the benefit of consistent device use of CPAP for diabetes, gastric reflux and depression. Patient is looking into getting a breast reduction to help her with her weight loss. She is trying to walk every day but she has a lot of pain in her back because of the heaviness of her chest. She also feels a lot of pressure when she is laying down from the heaviness of her chest. She is looking into this so that she can continue to try to lose weight. I encouraged her to continue with her efforts. * Change auto CPAP pressure to 8-10 cmH2O * Notify me if snoring with mask or feeling that the pressure is too much or too little * Continue to try to lose weight * Call this office if any problems using CPAP * Return for follow up in 3 months, or sooner if concerns arise Counseling Topics: Spare mask, Weight loss health impact Visit Type: In Office Time Spent with Patient (minutes): 21 Provider Statement: I spent 100% of the Face to Face Visit with the patient with greater than 50% spent counseling the patient and coordination of care.
== END 2021-02-09 12:33 | disposition home or self-care (01) ==
LOC: SC 12:32
PROVIDERS: ATTEND Nurse Practitioner Family
DX: G47.33 Obstructive sleep apnea (adult) (pediatric) (principal); E66.9 Obesity, unspecified; Z68.39 Body mass index [BMI] 39.0-39.9, adult
CPT/HCPCS: 99212; 99213

== ENCOUNTER 2021-04-12 19:46 | Emergency (ER) | payer OTHER ==
[2021-04-12 20:10] LABS: BILIRUBIN,URINE NEGATIVE (NEGATIVE); GLUCOSE, URINE (UA) NEGATIVE (NEGATIVE); KETONES,URINE (UA) 15 mg/dL (NEGATIVE); LEUKOCYTE ESTERASE, URINE NEGATIVE (NEGATIVE); NITRITE,URINE NEGATIVE (NEGATIVE); OCCULT BLOOD,URINE LARGE (NEGATIVE); PROTEIN,URINE NEGATIVE (NEGATIVE); UROBILINOGEN,URINE 0.2 (NORMAL) E.U./dL (NORMAL)
[2021-04-12 20:12] LABS: CLARITY,URINE CLEAR (CLEAR)
[2021-04-12 20:29] LABS: BACTERIA,URINE None Seen /HPF (None Seen); RBC,URINE 0-5 /HPF (0-5); SQUAMOUS EPITHELIAL CELL,UR RARE Squamous (<= Few); WBC,URINE 0-3 /HPF (0-5)
[2021-04-12 20:31] LABS: BASOPHILS # (AUTO) 0.1 10^3/uL (0.0-0.1); BASOPHILS % (AUTO) 0.5 %; EOSINOPHILS # (AUTO) 0.2 10^3/uL (0.0-0.7); EOSINOPHILS % (AUTO) 1.5 %; HCT - HEMATOCRIT 41.8 % (37.0-47.0); HGB - HEMOGLOBIN 13.8 g/dL (12.0-16.0); LYMPHOCYTES # (AUTO) 3.3 10^3/uL (1.5-3.5); LYMPHOCYTES % (AUTO) 28.7 %; MEAN CORPUSCULAR HEMOGLOBIN 29.8 pg (27.0-31.0); MEAN CORPUSCULAR VOLUME 90.3 fL (81.0-99.0); MEAN PLATELET VOLUME 9.6 fL (7.9-10.8); MONOCYTES # (AUTO) 0.6 10^3/uL (0.0-1.0); MONOCYTES % (AUTO) 5.2 %; NEUTROPHILS # (AUTO) 7.3 10^3/uL (1.5-6.6); NEUTROPHILS % (AUTO) 63.8 %; PLT - PLATELET COUNT 302 10^3/uL (130-450); RED BLOOD COUNT 4.63 10^6/uL (4.20-5.40); RED CELL DISTRIBUTION WIDTH 12.7 % (12.0-15.0); WHITE BLOOD COUNT 11.4 x10^3/uL (4.8-10.8)
[2021-04-12] MEDS ORDERED: SODIUM CHLORIDE 0.9% 1,000 ML IV STA (20:37)
[2021-04-12 20:41] LABS: ALBUMIN 4.7 g/dL (3.2-5.5); ALBUMIN/GLOBULIN RATIO 1.6 (1.0-2.2); BILIRUBIN,TOTAL 0.7 mg/dL (0.2-1.0); CALCIUM 9.8 mg/dL (8.5-10.3); CREATININE 0.8 mg/dL (0.4-1.0); POTASSIUM 3.8 mmol/L (3.5-5.0); TOTAL PROTEIN 7.7 g/dL (6.7-8.2)
[2021-04-12] MEDS ORDERED: IOVERSOL 320 100 ML VIAL IVP ONE ×2 (20:50→21:36)
[2021-04-12] MEDS ORDERED: MORPHINE 2 MG/ML CARPUJECT IVP STA (20:56)
--- NOTE | 2021-04-12 21:49 | CT Report ---
PROCEDURE: Abdomen/Pelvis W INDICATIONS: L flank pain, hematuria CONTRAST: IV CONTRAST: Optiray 320 ml: 100 PO CONTRAST: *NO PO CONTRAST TECHNIQUE: After the administration of IV contrast, 5 mm thick sections acquired from the diaphragms to the symp hysis. 5 mm thick coronal and sagittal reformats were acquired. For radiation dose reduction, the f ollowing was used: automated exposure control, adjustment of mA and/or kV according to patient size. COMPARISON: None. FINDINGS: ABDOMEN: Lung bases: No acute findings. Heart:Normal in size. No pericardial effusion. Liver: Normal. Gallbladder: Surgically absent Bile ducts: Normal. Pancreas: Normal. Spleen: Normal. Adrenals: Normal. Kidneys and ureters: No urolithiasis. No evidence of urinary obstruction. No perinephric stranding id entified. Stomach and duodenum: Normal. Bowel: Normal. Other: No free fluid or air. Abdominal nodes: Normal. Aorta: Normal in size. IVC: Normal. Ventral wall: Postsurgical changes PELVIS: Bladder and reproductive: Low-attenuation focus involving the lower uterine segment measuring 2.7 cm in diameter which is technically indeterminate and recommend further evaluation with dedicated pelvic ultrasound Pelvic nodes: Normal. Inguinal: No hernia. Bones: No vertebral body compression fracture. No suspicious bone lesion. Spondylitic changes and fac et arthropathy. IMPRESSION: No urolithiasis or evidence of urinary obstruction. Indeterminate low-attenuation lesion or focus involving the lower uterine segment. Recommend further evaluation with dedicated pelvic ultrasound. Reviewed by: Manny Reynolds MD on 04/12/2021 9:47 PM PST Approved by: Manny Reynolds MD on 04/12/2021 9:47 PM PST Station ID: [id number]
--- NOTE | 2021-04-12 23:17 | ED Physician Documentation ---
History of Present Illness - Stated complaint Stated Complaint: FEMALE - Chief complaint Chief Complaint: Abd Pain - History obtained from History obtained from: Patient - Additonal information Additional information: 65-year-old woman with past medical history of anxiety presents with vaginal bleeding starting this morning and lower abdominal pain is constant, gradual in onset, midline, mild, with sensation of fullness. Also with pain to the left side. Denies increased frequency or dysuria. Patient has past surgical history of appendectomy, cholecystectomy, lap band, hernia repair, and bladder sling. Review of Systems Ten Systems: 10 systems reviewed and negative Constitutional: denies: Fever, Chills GI: reports: Abdominal Pain. denies: Nausea, Vomiting, Diarrhea : reports: Hematuria, Vaginal bleeding (hematuria vs vag bleeding). denies: Dysuria, Frequency PD PAST MEDICAL HISTORY - Past Medical History Past Medical History: Yes Cardiovascular: None Respiratory: Asthma Neuro: None Endocrine/Autoimmune: Other GI: Other BATTERY SERVICE TECHNICIAN: None : Other HEENT: None Psych: Depression Musculoskeletal: None Derm: None - Past Surgical History Past Surgical History: Yes General: Cholecystectomy, Appendectomy, Other - Present Medications Home Medications: Ambulatory Orders Medication Instructions Recorded Confirmed Fluoxetine HCl 20 mg PO DAILY 05/11/17 04/12/21 - Allergies Allergies/Adverse Reactions: Allergies Allergy/AdvReac Type Severity Reaction Status Date / Time naproxen Allergy Hives Verified 04/12/21 20:01 [From Flanax (naproxen)] neomycin Allergy Rash Verified 04/12/21 20:01 - Social History Does the pt smoke?: No Smoking Status: Never smoker Does the pt drink ETOH?: Yes Does the pt have substance abuse?: No - Immunizations Immunizations are current?: No - POLST Patient has POLST: No PD ED PE NORMAL - Vitals Vital signs reviewed: Yes - General General: Alert and oriented X 3, No acute distress, Well developed/nourished - HEENT HEENT: Atraumatic, PERRL, EOMI - Neck Neck: Supple, no meningeal sign - Cardiac Cardiac: RRR - Respiratory Respiratory: No respiratory distress, Clear bilaterally - Abdomen Abdomen: Non tender, Non distended - Back Back: No CVA TTP - Derm Derm: Normal color, Warm and dry - Extremities Extremities: No deformity - Neuro Neuro: Alert and oriented X 3 - Psych Psych: Normal mood, Normal affect Results - Vitals Vitals: Vital Signs - 24 hr 04/12/21 04/12/21 04/12/21 19:50 21:08 21:32 Temperature 36.3 C L Heart Rate 79 67 69 Respiratory 16 16 16 Rate Blood Pressure 168/62 H 144/62 H 132/57 H O2 Saturation 98 97 98 04/12/21 21:50 Temperature Heart Rate 69 Respiratory 15 Rate Blood Pressure O2 Saturation 97 Oxygen O2 Source Room air - Labs Labs: Laboratory Tests 04/12/21 04/12/21 04/12/21 20:03 20:17 20:17 WBC 11.4 H RBC 4.63 Hgb 13.8 Hct 41.8 MCV 90.3 MCH 29.8 MCHC 33.0 RDW 12.7 Plt Count 302 MPV 9.6 Neut # (Auto) 7.3 H Lymph # (Auto) 3.3 [place] # (Auto) 0.6 Eos # (Auto) 0.2 Baso # (Auto) 0.1 Absolute Nucleated RBC 0.00 Nucleated RBC % 0.0 Sodium 141 Potassium 3.8 Chloride 102 Carbon Dioxide 26 Anion Gap 13.0 BUN 18 Creatinine 0.8 Estimated GFR (MDRD) 72 L Glucose 98 Calcium 9.8 Total Bilirubin 0.7 AST 21 ALT 21 Alkaline Phosphatase 96 Total Protein 7.7 Albumin 4.7 Globulin 3.0 Albumin/Globulin Ratio 1.6 Lipase 38 Urine Color LIGHT YELLOW Urine Clarity CLEAR Urine pH 6.0 Ur Specific [place] 1.010 Urine Protein NEGATIVE Urine Glucose (UA) NEGATIVE Urine Ketones 15 H Urine Occult Blood LARGE H Urine Nitrite NEGATIVE Urine Bilirubin NEGATIVE Urine Urobilinogen 0.2 (NORMAL) Ur Leukocyte Esterase NEGATIVE Urine RBC 0-5 Urine WBC 0-3 Ur Squamous Epith Cells RARE Squamous Urine Bacteria None Seen Ur Microscopic Review INDICATED Urine Culture Comments NOT INDICATED PD MEDICAL DECISION MAKING - ED course ED course: 65-year-old woman presents with vaginal bleeding versus hematuria, Found to have a spot rn the uterus on CT. Follow-up ultrasound completed with thickened cystic endometrium, complex area in vagina and cervix concerning for cancer. Patient wi ll follow up outpatient BATTERY SERVICE TECHNICIAN oncology. Return precautions given. Departure - Departure Disposition: 01 Home, Self Care Clinical Impression: Uterine mass, Vaginal bleeding Condition: Stable Instructions: ED Bleed Irregular Vaginal Follow-Up: No Neumann MD [Physician No Access] - Comments: You are seen in the emergency department for vaginal bleeding. Your CT and ultrasound show evidence of a mass in the uterus and on the cervix. You will need to follow-up with a BATTERY SERVICE TECHNICIAN oncologist (cancer doctor specializing in women's organs). Please return to the emergency department if you have heavy vaginal bleeding, any new or worsening symptoms or other concerns.
[2021-04-12 23:25] VITALS: BP 138/60
--- NOTE | 2021-04-13 | Ultrasound Report ---
PROCEDURE: Pelvic w/Transvaginal INDICATIONS: UTERINE MASS ON CT, HEMATURIA TECHNIQUE: Real-time scanning was performed of the pelvic organs, with image documentation. Additional endovagi nal scanning was necessary due to incomplete visualization of the adnexal and endometrial structures by transabdominal scanning. COMPARISON: Correlation is made with abdomen pelvis CT, 04/12/2021. FINDINGS: No pathologic free abdominal or pelvic fluid. Uterus: Uterus is normal in size at 8.7 x 3.8 x 3.5 cm. Uterine echotexture is mildly heterogeneous, without a focal fibroid seen. The uterus is anteverted. The endometrial stripe is thickened to 17 mm and demonstrates cystic areas within it. There is associ ated increased abnormal vascularity seen. Within the cervix, there is a complex region seen without abnormal vascularity that measures 2.5 x 1. 2 x 2.7 cm. Ovaries: Neither ovary is seen, secondary to overlying bowel gas. IMPRESSION: Abnormally thickened and hypervascular endometrial stripe, which measures up to 17 mm. Given the age of the patient and the presenting history of postmenopausal bleeding, this is highly suspicious for e ndometrial neoplasm. Within the cervix, there is heterogeneous nonvascular material, which may simply be related to hemorr hagic products. Gynecology referral is recommended. Note: Concordant preliminary findings given by the communications project lead upon the completion of the examination to Dr. Bender at 11:25 PM on 04/12/2021. Reviewed by: Hair Qiu MD on 04/12/2021 10:58 PM [facility] Approved by: Hair Qiu MD on 04/12/2021 10:58 PM [facility] Station ID: [id number]
== END 2021-04-12 23:46 | disposition home or self-care (01) ==
LOC: ED 19:46
DX: N85.8 Other specified noninflammatory disorders of uterus (principal); N93.9 Abnormal uterine and vaginal bleeding, unspecified
CPT/HCPCS: 36415; 74177; 76830; 76856; 80053; 81001; 83690; 85025; 96361; 96374; 99283; 99284; Q9967; 81003; 87086

== ENCOUNTER 2021-05-11 10:17 | Outpatient (CLI) | payer OTHER ==
[2021-05-11 10:58] VITALS: BP 137/5
--- NOTE | 2021-05-11 10:58 | SLEEP CARE CONSULTATION ---
Information from patient questionnaire entered by Alvaro Gonzalez MA. I have reviewed and concur with the information entered by Alvaro Gonzalez MA. This document represents the service I personally performed and the decisions made by , Federica Hernandez ARNP. History of Present Illness Service Date and Time: 05/11/2021 1017 Previous diagnosis: Moderate, Obstructive Sleep Apnea-Hypopnea Syndrome AHI: 29.1 Reason for follow up: three month Equipment type: CPAP Equipment obtained from: [facility] (has gotten once refill; needs to contact DME) Mask style: Nasal (over the nose) Backup mask available: Yes (old mask) Last cushion change: 4 months ago Prior sleep studies: Yes Year and Where: 2020 - [facility] Type of Sleep Study: Home sleep study HPI additional information: SANTIAGO VALLECILLO was diagnosed to have moderate, AHI 29.1, obstructive sleep apnea-hypopnea syndrome and returned today for CPAP therapy three month follow- up. Sleep Study - Results Type of Sleep Study: Home sleep study Prior sleep studies: Yes Year and Where: 2020 - [facility] CPAP Compliance Data - Data Reviewed with Patient Average duration of nightly device use: 6 hours 20 minutes Compliance rate %: 74 Current pressure setting (cmH2O): 8-10 Average residual AHI: 1.2 Central apnea: 0 Obstructive apnea: .7 Subjective Missed days of use due to: reports: illness (went to ER, vaginal bleeding) Patient concerns: reports: mask discomfort, air blowing in eyes, other (bloated - has improved a lot). denies: aerophagia, mask leak noise, condensation in mask/hose, nasal congestion, dry mouth, nose, throat, epistaxis Observed to snore while using device: No Current pressure setting perceived as: comfortable On therapy, patient: reports: sleeping better, awakening more refreshed, being more awake and alert during the day, more rested overall. denies: drowsiness while driving Initial [place] Sleepiness Scale score: 9 (in 2020) Current [place] Sleepiness Scale score: 9 (in 2020) Allergies and Home Medications Home medication list reviewed: Yes (no changes) Review of Systems Review of systems same as previous: No (ER with vaginal bleeding/thick uterus - biopsy scheduled) Physical Exam Vital signs obtained and entered by: Jeet GONZALEZ CMA [facility] Blood Pressure: 137/5 (right) Cuff size: wrist Heart Rate: 60 O2 Saturation: 96 (with mask) Height: 5 ft 3 in Weight: 208 lb (with clothes) Body Mass Index: 36.8 BMI Classification: Obese Impression and Plan 1. Obstructive Sleep Apnea-Hypopnea Syndrome, moderate, with good treatment compliance and good apnea control. On CPAP therapy, the patient has better sleep quality and is more rested overall. Patient has bee dealing with some health issues. She went to the ED for vaginal bleeding/cramping. She has a biopsy scheduled to try to determine cause of her issues. She missed some days on her device due to these concerns but is still showing compliance at this time. Patient has lost 16 pounds recently and has so far kept it off. She will continue to try to lose weight once this issue is figured out. I advised her to try to concentrate on eating nutrient rich foods to nourish her body while under stress. Patient voiced understanding. Patient's apnea severity and rationale for treatment to reduce apnea, improve sleep quality and reduce cardiovascular and cerebrovascular events was reviewed. I also reviewed the benefit of consistent device use of CPAP for diabetes, gastric reflux, and depression. * Continue auto CPAP pressure at 8-10 cmH2O * Notify me if snoring with mask or feeling that the pressure is too much or too little * Attempt to lose weight * Call this office if any problems using CPAP * Return for follow up in 6 months, or sooner if concerns arise Counseling Topics: Spare mask, Weight loss health impact Visit Type: In Office Time Spent with Patient (minutes): 17 Provider Statement: I spent 100% of the Face to Face Visit with the patient with greater than 50% spent counseling the patient and coordination of care.
== END 2021-05-11 10:18 | disposition home or self-care (01) ==
LOC: SC 10:17
PROVIDERS: ATTEND Nurse Practitioner Family
DX: G47.33 Obstructive sleep apnea (adult) (pediatric) (principal); E66.9 Obesity, unspecified; Z68.36 Body mass index [BMI] 36.0-36.9, adult
CPT/HCPCS: 99212

== ENCOUNTER 2021-12-20 15:01 | Outpatient (CLI) | payer OTHER ==
[2021-12-20 15:50] VITALS: BP 115/79
--- NOTE | 2021-12-20 15:50 | SLEEP CARE CONSULTATION ---
Information from patient questionnaire entered by Alvaro Abbasi MA. I have reviewed and concur with the information entered by Alvaro Abbasi MA. This document represents the service I personally performed and the decisions made by , Federica Hernandez ARNP. History of Present Illness Service Date and Time: 12/20/2021 1501 Previous diagnosis: Moderate, Obstructive Sleep Apnea-Hypopnea Syndrome AHI: 29.1 Reason for follow up: six month (LAST SEEN 05/17, RESMED, WALKER 07/27/20,), other (9 MONTH F/U, ) Equipment type: CPAP Equipment obtained from: [employer] (not getting supplies often) Mask style: Nasal (over the nose) Backup mask available: No (needs supplies, will save old mask when replaced) Last cushion change: 2.5-3 months Prior sleep studies: Yes Year and Where: 2020 - [email or web address] Type of Sleep Study: Home sleep study HPI additional information: SANTIAGO VALLECILLO was diagnosed to have moderate, AHI 29.1, obstructive sleep apnea-hypopnea syndrome and returned today for CPAP therapy six month follow-up. Sleep Study - Results Type of Sleep Study: Home sleep study Prior sleep studies: Yes Year and Where: 2020 - [facility] CPAP Compliance Data - Data Reviewed with Patient Average duration of nightly device use: 6 HOURS 47 MINUTES Compliance rate %: 78 (09/21/21-12/19/21; 73/90 days used) Current pressure setting (cmH2O): 8-10 Average residual AHI: 0.7 Central apnea: .0 Obstructive apnea: .3 Hypopnea: .4 Average large leak: .0 Subjective Missed days of use due to: reports: travel Patient concerns: reports: mask discomfort (may be overtighten straps), air blowing in eyes. denies: aerophagia, mask leak noise, condensation in mask/hose, nasal congestion, dry mouth, nose, throat, epistaxis, other Observed to snore while using device: No Current pressure setting perceived as: comfortable On therapy, patient: reports: sleeping better, awakening more refreshed, being more awake and alert during the day, more rested overall. denies: drowsiness while driving Initial [place] Sleepiness Scale score: 9 (in 2020) Current [place] Sleepiness Scale score: 9 (12/20/2021) Allergies and Home Medications Home medication list reviewed: Yes (IUD) Allergy and home medication list: Allergies naproxen [From Flanax (naproxen)] Allergy (Verified 04/12/21 20:01) Hives neomycin Allergy (Verified 04/12/21 20:01) Rash Review of Systems Review of systems same as previous: No (endometrial thickness; knee arthritis) Physical Exam Vital signs obtained and entered by: Jeet ABBASI CMA [facility] Blood Pressure: 115/79 (RESP 18, PULSE 60, RIGHT) Heart Rate: 62 O2 Saturation: 98 (CLOTH MASK) Height: 5 ft 3 in Weight: 220 lb Weight change since last visit: LOSE - FOR BREAST REDUCTION. Body Mass Index: 38.9 BMI Classification: Obese Impression and Plan 1. Obstructive Sleep Apnea-Hypopnea Syndrome, moderate, with good treatment compliance and excellent apnea control. On CPAP therapy, the patient has better sleep quality and is more rested overall. Patient has significant improvement of her sleep apnea and is satisfied with CPAP therapy. She would like to have a portable CPAP machine because she is retired and planning on going for a few trips this next year. She is going to check with her insurance for coverage of this device. I will write a prescription for CPAP portable device for her. She may end up having to pay out of pocket for this device and she is aware. Patient's apnea severity and rationale for treatment to reduce apnea, improve sleep quality and reduce cardiovascular and cerebrovascular events was reviewed. I also reviewed the benefit of consistent device use of CPAP for diabetes, gastric reflux and depression. I advised patient to try to lose weight. She is going to get a breast reduction and is trying to lose weight prior to this surgery. * Continue auto CPAP pressure at 8-10 cmH2O * Portable CPAP prescription * Notify me if snoring with mask or feeling that the pressure is too much or too little * Attempt to lose weight * Call this office if any problems using CPAP * Return for follow up in 1 year, or sooner if concerns arise Counseling Topics: Spare mask, Weight loss health impact Visit Type: In Office Time Spent with Patient (minutes): 22 Provider Statement: I spent 100% of the Face to Face Visit with the patient with greater than 50% spent counseling the patient and coordination of care.
== END 2021-12-20 15:02 | disposition home or self-care (01) ==
LOC: SC 15:01
PROVIDERS: ATTEND Nurse Practitioner Family
DX: G47.33 Obstructive sleep apnea (adult) (pediatric) (principal); E66.9 Obesity, unspecified; Z68.39 Body mass index [BMI] 39.0-39.9, adult
CPT/HCPCS: 99212; 99213

== ENCOUNTER 2022-09-12 15:24 | Outpatient (CLI) | payer OTHER ==
--- NOTE | 2022-09-12 17:06 | XRAY Report ---
PROCEDURE: Knee 3 View LT INDICATIONS: LEFT KNEE PAIN TECHNIQUE: 4 views of the left knee(s) were acquired. COMPARISON: None. FINDINGS: Bones: No fractures or dislocations. No suspicious bony lesions. Tricompartmental joint space. Asso ciated osteophytosis. Soft tissues: No knee joint effusion. No suspicious soft tissue calcifications or masses. IMPRESSION: No acute bony abnormality. Kellgren-Jhonathan scale of osteoarthritis: Grade 1-2: mild osteoarthritis. Tricompartmental. Reviewed by: Demetris Mittal on 09/12/2022 5:05 PM PDT Approved by: Demetris Mittal on 09/12/2022 5:05 PM PDT Station ID: [id number]
== END 2022-09-12 15:25 | disposition home or self-care (01) ==
LOC: DI.S 15:24
PROVIDERS: ATTEND Internal Medicine
DX: M17.12 Unilateral primary osteoarthritis, left knee (principal)

== ENCOUNTER 2022-11-30 10:35 | Outpatient (CLI) | payer MEDICARE, OTHER ==
--- NOTE | 2022-11-30 11:18 | Sleep Patient Instructions ---
Sleep Center Visit Summary - Patient Visit Information Reason for Visit: Annual visit for PAP therapy - Patient Instructions Additional Instructions: You will continue with CPAP therapy with pressure set at 8-10 cmH2O. A supply prescription will be updated with your DME We encourage you to continue to try to lose weight. Please follow up with the sleep care office in 1 year. - Clinic Information Contact: [facility] [address] [place] [address] [email or web address] T: [phone]
[2022-11-30 11:25] VITALS: BP 108/60
--- NOTE | 2022-11-30 11:25 | SLEEP CARE CONSULTATION ---
Information from patient questionnaire entered by Monserrat Douglas. I have reviewed and concur with the information entered by Monserrat Douglas. This document represents the service I personally performed and the decisions made by , Federica Hernandez ARNP. History of Present Illness Service Date and Time: 11/30/2022 1035 Previous diagnosis: Moderate, Obstructive Sleep Apnea-Hypopnea Syndrome AHI: 29.1 Reason for follow up: annual (LAST SEEN 11/2021) Equipment type: CPAP (Airsense 10, s/u 07/2020) Equipment obtained from: [facility] (needs updated prescription) Mask style: Nasal (over the nose) Mask brand: Resmed (N20) Backup mask available: Yes (old mask cushion) Last cushion change: 6-8 weeks [facility]: Yes [facility] Type of Sleep Study: Home sleep study HPI additional information: SANTIAGO VALLECILLO was diagnosed to have moderate, AHI 29.1, obstructive sleep apnea-hypopnea syndrome and returned today for CPAP therapy annual follow-up. Sleep Study - Results Type of Sleep Study: Home sleep study Prior sleep studies: Yes Year and Where: 2020 - [facility] CPAP Compliance Data - Data Reviewed with Patient Average duration of nightly device use: 6 HRS 3 MIN Compliance rate %: 64 (06/02/22-11/28/22; 125/180 days used; 73% last 30 days) Current pressure setting (cmH2O): 8-10 Average residual AHI: 1.0 Central apnea: 0 Obstructive apnea: 0.4 Hypopnea: 0.5 Average large leak: 0.1 L/min Subjective Missed days of use due to: reports: travel Patient concerns: reports: air blowing in eyes, condensation in mask/hose (more in winter), nasal congestion, dry mouth, nose, throat (dry mouth and throat), other (headache due to sinus congestion). denies: aerophagia, mask discomfort, mask leak noise, epistaxis Observed to snore while using device: No Current pressure setting perceived as: comfortable On therapy, patient: reports: sleeping better, awakening more refreshed, being more awake and alert during the day, more rested overall. denies: drowsiness while driving Initial [place] Sleepiness Scale score: 9 (in 2020) Current [place] Sleepiness Scale score: 9 (11/30/22) Allergies and Home Medications Known drug allergies: Yes (as listed) Drug allergies reviewed: Yes Home medication list reviewed: Yes (stopped fluoxetine) Allergy and home medication list: Allergies naproxen [From Flanax (naproxen)] Allergy (Verified 11/29/22 10:58) Hives neomycin Allergy (Verified 11/29/22 10:58) Rash Review of Systems Review of systems same as previous: Yes (no changes) Physical Exam Vital signs obtained and entered by: MONSERRAT Velazquez MA Blood Pressure: 108/60 (LEFT ARM) Cuff size: regular Heart Rate: 48 O2 Saturation: 98 Height: 5 ft 3 in Weight: 215 lb 6.4 oz Weight change since last visit: 5 lb loss Body Mass Index: 38.1 BMI Classification: Obese Impression and Plan 1. Obstructive Sleep Apnea-Hypopnea Syndrome, moderate, with fair treatment compliance and good apnea control. On CPAP therapy, the patient has better sleep quality and is more rested overall. Patient has been having issues with dry mouth and throat, nasal congestion and sinus headaches. She states she does have issues with her sinuses feeling clogged all the time and allergies. Recently she stopped taking the medication because it was causing increase in her acid reflux. She thinks this is also contributed to her raspy voice and dry mouth and throat. I discussed with her using her humidifier and adjusting as needed, she wants to continue with it on auto for now. She did get some condensation in the tubing during the winter and we discussed ways of reducing the condensation including using her heated hose. Also discussed using mouth strips and nasal moisturizers to help with nasal congestion and oral venting dryness of mouth and throat. She voiced understanding and agreement with plan of care. Patient's apnea severity and rationale for treatment to reduce apnea, improve sleep quality and reduce cardiovascular and cerebrovascular events was reviewed. I also reviewed the benefit of consistent device use of CPAP for diabetes, gastric reflux and depression. 2. Obesity, unspecified. Currently patients BMI is 38.1. She has lost weight. She is walking every day. Obesity increases the risk of apnea, CPAP pressure requirements and overall health risks especially cardiovascular and diabetes. Thus patient is advised to continue to try to lose weight. * Continue auto CPAP pressure at 8-10 cmH2O * Update supplies prescription * Notify me if snoring with mask or feeling that the pressure is too much or too little * Continue to try to lose weight * Call this office if any problems using CPAP * Return for follow up in 1 year, or sooner if concerns arise Counseling Topics: Spare mask, Weight loss health impact Prescriptions: Device supplies Visit Type: In Office Time Spent with Patient (minutes): 22 Provider Statement: I spent 100% of the Face to Face Visit with the patient with greater than 50% spent counseling the patient and coordination of care.
== END 2022-11-30 10:36 | disposition home or self-care (01) ==
LOC: SC 10:35
PROVIDERS: ATTEND Nurse Practitioner Family
DX: G47.33 Obstructive sleep apnea (adult) (pediatric) (principal); E66.9 Obesity, unspecified; Z68.38 Body mass index [BMI] 38.0-38.9, adult
CPT/HCPCS: 99213; G0463; 99212

== ENCOUNTER 2023-01-19 10:43 | Outpatient (CLI) | payer MEDICARE, BC ==
--- NOTE | 2023-01-19 18:39 | CT Report ---
PROCEDURE: ABDOMEN W INDICATIONS: LEFT UPPER QUAD PAIN CONTRAST: 100ml omni 300 TECHNIQUE: After the administration of oral and intravenous contrast, 5 mm thick sections acquired from the diap hragms to the iliac crests. 5 mm thick coronal and sagittal reformats were acquired. For radiation dose reduction, the following was used: automated exposure control, adjustment of mA and/or kV accor ding to patient size. COMPARISON: CT abdomen and pelvis dated 04/12/2021 FINDINGS: Image quality: Excellent. Lung bases and heart: Unremarkable. Liver: Mild diffuse hepatic steatosis. No solid liver masses. Gallbladder and biliary tree: Surgically absent. No biliary dilation, accounting for post-cholecystec bran state. Spleen: No splenomegaly. Pancreas: No pancreatic ductal dilation. Adrenals: No adrenal nodule. Kidneys and ureters: No hydronephrosis. No renal cystic lesion which requires follow up. No solid mas s. Bowel and peritoneum: perigastric clips. No bowel distension. No pathologic free fluid. Lymph nodes: No central or retroperitoneal adenopathy. Vessels: No infrarenal aortic aneurysm. Bones: No aggressive osseous abnormality. Other: No significant ventral hernia. Evidence of previous repair of an anterior abdominal wall herni a. IMPRESSION: 1. No findings which explain left upper quadrant pain. 2. Mild diffuse hepatic steatosis. 3. Remote cholecystectomy. Reviewed by: Alexandr Cerna MD on 01/19/2023 6:38 PM PDT Approved by: Alexandr Crena MD on 01/19/2023 6:38 PM PDT Station ID: [id number]
[2023-01-19] MEDS ORDERED: iohexoL-300 100 ML VIAL IVP ONE (19:22)
[2023-01-19] MEDS ORDERED: BARIUM SULFATE 450 ML BOTTLE PO ONE (19:23)
== END 2023-01-19 10:44 | disposition home or self-care (01) ==
LOC: DI 10:43
PROVIDERS: ATTEND Physician Assistant
DX: R10.12 Left upper quadrant pain (principal); K76.0 Fatty (change of) liver, not elsewhere classified; Z90.49 Acquired absence of other specified parts of digestive tract
CPT/HCPCS: 74160; A9270; Q9967

== ENCOUNTER 2023-02-28 08:45 | Outpatient (CLI) | payer MEDICARE, BC ==
--- NOTE | 2023-03-01 11:18 | Mammography Report ---
BILATERAL DIGITAL SCREENING MAMMOGRAM 3D/2D: 02/28/2023 CLINICAL: Routine screening. Comparison is made to exams dated: 07/16/2020 ultrasound, 07/16/2020 mammogram, 05/03/2017 mammogram, a nd 09/12/2013 mammogram - [facility]. Both breasts are almost entirely fatty (category a/<25% glandular tissue). No significant masses, calcifications, or other findings are seen in either breast. There has been no significant interval change. IMPRESSION: NEGATIVE There is no mammographic evidence of malignancy. A 1 year screening mammogram is recommended. Based on the Tyrer Cuzick model (a risk assessment model) the patients lifetime risk is 3.7% and her 10 year risk is 1.8%. According to the ACR, ACS, and NCCN guidelines, an annual breast MRI exam sarah g with mammogram is recommended if the patients lifetime risk is 20% or greater. This exam was interpreted at Station ID: [id number]. NOTE: For mammograms, a report in lay terms will be sent to the patient. Approximately 15% of breast malignancies will not be visualized mammographically. In the management of a palpable breast mass, a negative mammogram must not discourage biopsy of a clinically suspicious lesion. Electronically Signed By: Srini willis/bill:02/28/2023 13:22:30 letter sent: No_Letter ACR BI-RADS Category 1: Negative 3341F PARENCHYMAL PATTERN: (F) - The breast(s) demonstrate(s) diffuse fatty replacement. BI-RADS CATEGORY: (1) - 1 Mammogram [id number] 1 year screening LATERALITY: (B)
== END 2023-02-28 08:46 | disposition home or self-care (01) ==
LOC: DI.S 08:45
PROVIDERS: ATTEND Physician Assistant
DX: Z12.31 Encounter for screening mammogram for malignant neoplasm of breast (principal)

== ENCOUNTER 2023-03-06 14:46 | Outpatient (CLI) | payer MEDICARE, BC ==
--- NOTE | 2023-03-06 16:24 | DEXA Report ---
PROCEDURE: Dexa Spine and/or Hip INDICATIONS: POST MENOPAUSAL TECHNIQUE: Dual energy x-ray absorptiometry (DXA) was performed on a [employer] System. Regions measur ed are the AP Spine, femoral neck, and if needed forearm. COMPARISON: None FINDINGS: Lumbar Spine: Bone Mineral Density 0.94 g/cm/cm,T score -1.6. Left Femoral Neck: Bone Mineral Density 0.957 g/cm/cm, T score -0.6. Left Hip: Bone Mineral Density 1.067 g/cm/cm,T score 0.5. (T score greater or equal to -1.0: NORMAL) (T score from -1.1 to -2.4: OSTEOPENIA) (T score less than or equal to -2.5 to: OSTEOPOROSIS) Impression: By WHO criteria, this patient has low bone density (osteopenia). Patients with diagnosis of osteoporosis or osteopenia should have regular bone mineral density assess ment. For those eligible for Medicare, routine testing is allowed once every 2 years. Testing frequ ency can be increased for patients who have rapidly progressing disease or for those who are receivin g medical therapy to restore bone mass. Reviewed by: Demetris Mittal on 03/06/2023 4:22 PM PDT Approved by: Demetris Mittal on 03/06/2023 4:22 PM PDT Station ID: [id number]
== END 2023-03-06 14:47 | disposition home or self-care (01) ==
LOC: DI 14:46
PROVIDERS: ATTEND Physician Assistant
DX: M85.88 Other specified disorders of bone density and structure, other site (principal); Z78.0 Asymptomatic menopausal state

== ENCOUNTER 2023-05-11 10:42 | Outpatient (CLI) | payer MEDICARE, BC ==
--- NOTE | 2023-05-11 13:45 | CT Report ---
PROCEDURE: SINUS SCREENING WO INDICATIONS: SINUSITIS TECHNIQUE: Noncontrast 3.0 mm axial images acquired from the frontal sinuses to the mid-sella, with coronal and sagittal reformats. For radiation dose reduction, the following was used: automated exposure control , adjustment of mA and/or kV according to patient size. COMPARISON: 07/21/2014 FINDINGS: Image quality: Excellent. Maxillary Sinuses: No bony remodeling or destruction. Mild mucosal thickening can be seen within the inferior right maxillary sinus. Minimal mucosal thickening can be seen within the inferior left maxi llary sinus. Ethmoid Air Cells: No bony remodeling or destruction. Sinuses are clear. Sphenoid Sinuses: No bony remodeling or destruction. Sinuses are clear. Frontal Sinuses: No bony remodeling or destruction. Sinuses are clear. Ostiomeatal Complexes: The ostiomeatal complexes are patent, yet they are constitutionally narrowed, with bilateral Link cells. Miscellaneous: Visualized intra-orbital contents are normal. No raffy bullosa. There is mild lef tward nasal septal deviation. Hyperostosis frontalis is incidentally noted, which is not frankly abnormal for a female patient of t his age. IMPRESSION: Focal right maxillary sinus disease, with mild mucosal thickening seen inferiorly. Improved mucosal t hickening within the inferior left maxillary sinus compared to 2014. The ostiomeatal complexes are patent, yet they are constitutionally narrowed, with bilateral Link c ells. Mild leftward nasal septal deviation. Reviewed by: Hair Qiu MD on 05/11/2023 12:44 PM [place] Approved by: Hair Qiu MD on 05/11/2023 12:44 PM [facility] Station ID: [id number]
== END 2023-05-11 10:43 | disposition home or self-care (01) ==
LOC: DI 10:42
PROVIDERS: ATTEND Nurse Practitioner Family
DX: J32.0 Chronic maxillary sinusitis (principal); J34.2 Deviated nasal septum

== ENCOUNTER 2023-12-04 12:57 | Outpatient (CLI) | payer MEDICARE, BC ==
--- NOTE | 2023-12-04 13:35 | Sleep Patient Instructions ---
Sleep Center Visit Summary - Patient Visit Information Reason for Visit: Annual follow-up - Patient Instructions Additional Instructions: You will continue with CPAP therapy with pressure set at 8-9 cmH2O. A supply prescription will be updated with your DME. We encourage you to continue to try to lose weight. Please follow up with the sleep care office in 1 year. - Clinic Information Contact: [facility] [address] [place] [address] [email or web address] T: [phone]
--- NOTE | 2023-12-04 13:39 | SLEEP CARE CONSULTATION ---
Information from patient questionnaire entered by Monserrat Douglas. I have reviewed and concur with the information entered by Monserrat Douglas. This document represents the service I personally performed and the decisions made by me, Federica Hernandez ARNP. History of Present Illness Service Date and Time: 12/04/2023 1257 Previous diagnosis: Moderate, Obstructive Sleep Apnea-Hypopnea Syndrome AHI: 29.1 Reason for follow up: annual (LAST SEEN 11/2022) Equipment type: CPAP (Airsense 10, s/u 07/2020) Equipment obtained from: [employer] (getting supplies) Mask style: Nasal (over the nose) Backup mask available: Yes Last cushion change: 1 month Prior sleep studies: Yes Year and Where: 2020 - [facility] Type of Sleep Study: Home sleep study HPI additional information: SANTIAGO VALLECILLO was diagnosed to have moderate, AHI 29.1, obstructive sleep apnea-hypopnea syndrome and returned today for CPAP therapy annual follow-up. Sleep Study - Results Type of Sleep Study: Home sleep study Prior sleep studies: Yes Year and Where: 2020 - [facility] CPAP Compliance Data - Data Reviewed with Patient Average duration of nightly device use: 5 HRS Compliance rate %: 58 (11/29/22-11/28/23; 258/365 days used) Current pressure setting (cmH2O): 8-9 Average residual AHI: 1.3 Central apnea: 0 Obstructive apnea: 0.3 Hypopnea: 1 Average large leak: 0.1 L/min Subjective Missed days of use due to: reports: travel Patient concerns: reports: dry mouth, nose, throat (oral venting occasionally). denies: aerophagia, mask discomfort, air blowing in eyes, mask leak noise, condensation in mask/hose, nasal congestion, epistaxis Observed to snore while using device: No Current pressure setting perceived as: comfortable On therapy, patient: reports: sleeping better, awakening more refreshed, being more awake and alert during the day, more rested overall. denies: drowsiness while driving Initial [place] Sleepiness Scale score: 9 (in 2020) Current [place] Sleepiness Scale score: 7 Allergies and Home Medications Known drug allergies: Yes (as listed) Drug allergies reviewed: Yes Home medication list reviewed: Yes (Wegovy (not started yet)) Allergy and home medication list: Allergies naproxen [From Flanax (naproxen)] Allergy (Verified 11/30/23 11:02) Hives neomycin Allergy (Verified 11/30/23 11:02) Rash Review of Systems Review of systems same as previous: No (left ankle sprain and torn ligaments/tendon; in hydrotherapy) Physical Exam Vital signs obtained and entered by: FEDERICA BEARDENP-C Blood Pressure: 143/80 Cuff size: long (right arm) Heart Rate: 59 O2 Saturation: 96 Height: 5 ft 3 in Weight: 223 lb 9.6 oz Body Mass Index: 39.6 BMI Classification: Obese Impression and Plan 1. Obstructive Sleep Apnea-Hypopnea Syndrome, moderate, with fair treatment compliance and good apnea control. On CPAP therapy, the patient has better sleep quality and is more rested overall. She has significant improvement of her sleep apnea. She is satisfied with current CPAP therapy. She is about to start taking medication to help her to lose weight. We discussed things to watch for should she lose a significant amount of weight. She would have to come in for reevaluation then on his sleep study. She voiced understanding. Patient's apnea severity and rationale for treatment to reduce apnea, improve sleep quality and reduce cardiovascular and cerebrovascular events was reviewed. I also reviewed the benefit of consistent device use of CPAP for diabetes, gastric reflux, depression. 2. Obesity, unspecified. Currently patients BMI is 39.6. Obesity increases the risk of apnea, CPAP pressure requirements and overall health risks especially cardiovascular and diabetes. Thus patient is advised to lose weight. * Continue auto CPAP pressure at 8-9 cmH2O * Update supply prescription * Notify me if snoring with mask or feeling that the pressure is too much or too little * Attempt to lose weight * Call this office if any problems using CPAP * Return for follow up in 12 months, or sooner if concerns arise Counseling Topics: Spare mask, Weight loss health impact Prescriptions: Device supplies Follow up with Sleep Care in: 1 year Visit Type: In Office Time Spent with Patient (minutes): 21 Provider Statement: I spent 100% of the Face to Face Visit with the patient with greater than 50% spent counseling the patient and coordination of care.
[2023-12-04 13:41] VITALS: BP 143/80; O2SAT 96
== END 2023-12-04 12:58 | disposition home or self-care (01) ==
LOC: SC 12:57
PROVIDERS: ATTEND Nurse Practitioner Family
DX: G47.33 Obstructive sleep apnea (adult) (pediatric) (principal); E66.9 Obesity, unspecified; Z68.39 Body mass index [BMI] 39.0-39.9, adult
CPT/HCPCS: 99213; G0463; 99212